=== PATIENT | male | born 1965 | race Caucasian/White ===

== ENCOUNTER 2023-01-09 10:06 | Emergency (ER) | payer OTHER, BC | END 2023-01-09 12:20 | disposition home or self-care (01) | LOC: CSHERS 10:06 | DX: S20.20XA Contusion of thorax, unspecified, initial encounter (principal); W18.30XA Fall on same level, unspecified, initial encounter | CPT/HCPCS: 71046; 93005 ==

== ENCOUNTER 2025-04-27 04:10 | Emergency (ER) | payer BC ==
[2025-04-27 04:37] LABS: #Basophils 0.10 10x3/uL (0.0-0.2); #Eosinophils 0.30 10x3/uL (0.0-0.5); #Monocytes 1.10 10x3/uL (0.0-1.1); #Neutrophils 7.91 10x3/uL (1.5-8.4); %Basophils 0.9 % (0.0-2.0); %Eosinophils 2.6 % (0.0-6.0); %Lymphocytes 17.3 % (18.0-47.0); %Monocytes 9.6 % (0.0-10.0); %Neutrophils 69.2 % (40.0-75.0); Hematocrit 41.1 % (38.8-50.0); Hemoglobin 14.4 g/dL (13.5-17.5); Mean Corpuscular Hemoglobin 31.5 pg (27.0-33.0); Mean Corpuscular Volume 89.9 fL (81.2-95.1); Platelet Count 272 10x3/uL (150-450); Red Blood Cell (RBC) Count 4.57 10x6/uL (4.32-5.72); White Blood Cell (WBC) Count 11.42 10x3/uL (3.5-10.5)
[2025-04-27 04:49] LABS: ALT (SGPT) 20 U/L (Less than 45); AST (SGOT) 30 U/L (11-34); Albumin 4.0 g/dL (3.1-4.5); Alkaline Phosphatase 47 U/L (40-110); Anion Gap 14 mmol/L (10-20); BUN (Urea Nitrogen) 16 mg/dL (8.4-25.7); Bilirubin, Total 0.6 mg/dL (0.3-1.2); Calc. Creatinine Clearance 0 mL/min (70-130); Calcium 8.8 mg/dL (7.8-10.44); Carbon Dioxide 23 mmol/L (22-29); Chloride 103 mmol/L (98-107); Globulin 2.2 g/dL (2.4-3.5); Glucose 139 mg/dL (70-105); Potassium 4.2 mmol/L (3.5-5.1); Sodium 136 mmol/L (136-145)
[2025-04-27 04:55] LABS: Troponin I Less than 0.010 ng/mL (< 0.028)
[2025-04-27] MEDS ORDERED: Mag-Al 1200 mg/1200 mg/30 ML UDCUP ONE (06:14)
[2025-04-27] MEDS ORDERED: Lidocaine Viscous Sol 2% 15 ml UD Cup ONE (06:14)
== END 2025-04-27 06:32 | disposition home or self-care (01) ==
LOC: CSHERS 04:10
DX: R07.9 Chest pain, unspecified (principal); I49.3 Ventricular premature depolarization; I51.7 Cardiomegaly
CPT/HCPCS: 71275; 80053; 84484; 85025; 93005; 94760

== ENCOUNTER 2025-04-30 10:21 | Emergency (ER) | payer BC ==
[2025-04-30 10:55] LABS: #Basophils 0.04 10x3/uL (0.0-0.2); #Eosinophils 0.12 10x3/uL (0.0-0.5); #Monocytes 0.86 10x3/uL (0.0-1.1); #Neutrophils 6.27 10x3/uL (1.5-8.4); %Basophils 0.5 % (0.0-2.0); %Eosinophils 1.4 % (0.0-6.0); %Lymphocytes 14.8 % (18.0-47.0); %Monocytes 10.0 % (0.0-10.0); %Neutrophils 73.0 % (40.0-75.0); Hematocrit 43.9 % (38.8-50.0); Hemoglobin 15.1 g/dL (13.5-17.5); Mean Corpuscular Hemoglobin 30.9 pg (27.0-33.0); Mean Corpuscular Volume 90.0 fL (81.2-95.1); Platelet Count 262 10x3/uL (150-450); Red Blood Cell (RBC) Count 4.88 10x6/uL (4.32-5.72); White Blood Cell (WBC) Count 8.59 10x3/uL (3.5-10.5)
[2025-04-30 11:13] LABS: ALT (SGPT) 16 U/L (Less than 45); AST (SGOT) 19 U/L (11-34); Albumin 3.8 g/dL (3.1-4.5); Alkaline Phosphatase 50 U/L (40-110); Anion Gap 15 mmol/L (10-20); BUN (Urea Nitrogen) 14 mg/dL (8.4-25.7); Bilirubin, Total 1.6 mg/dL (0.3-1.2); Calc. Creatinine Clearance 0 mL/min (70-130); Calcium 8.9 mg/dL (7.8-10.44); Carbon Dioxide 23 mmol/L (22-29); Chloride 102 mmol/L (98-107); Globulin 2.7 g/dL (2.4-3.5); Glucose 104 mg/dL (70-105); Potassium 4.3 mmol/L (3.5-5.1); Sodium 136 mmol/L (136-145)
[2025-04-30 11:17] LABS: Troponin I Less than 0.010 ng/mL (< 0.028)
[2025-04-30 11:36] LABS: Glucose, Urine (Dipstick) Normal (Negative); Leukocyte Negative (Negative); Protein, Urine (Dipstick) Negative (Neg-Trace); Specific Gravity, Urine 1.005 (1.005-1.030)
[2025-04-30 11:47] LABS: Bacteria/HPF Rare-Few HPF (None Seen); CAUTI Indications for Culture Pelvic or flank pain; RBC/HPF 0-3 HPF (0-3); WBC/HPF None Seen HPF (0-3)
[2025-04-30 11:48] LABS: Urine Culture Reflex No No
== END 2025-04-30 13:10 | disposition home or self-care (01) ==
LOC: CSHERS 10:21
DX: J02.9 Acute pharyngitis, unspecified (principal); K21.00 Gastro-esophageal reflux disease with esophagitis, without bleeding
CPT/HCPCS: 36415; 76705; 80053; 81001; 84484; 85025; 87428; 93005